=== PATIENT | female | born 1990 | race Two or more races ===

== ENCOUNTER 2022-05-16 20:38 | Emergency (ER) | payer SELFPAY ==
[~2022-05-16] VITALS: Ht 157.5 cm; Wt 87.5 kg
[2022-05-16 20:39] VITALS: BP 122/59
== END 2022-05-16 21:32 | disposition left against medical advice (07) ==
LOC: M ED 20:38
DX: Z53.21 Procedure and treatment not carried out due to patient leaving prior to being seen by health care provider (principal)

== ENCOUNTER 2023-05-28 10:04 | Day surgery (SDC) | payer OTHER ==
[~2023-05-28] VITALS: Ht 157.5 cm; Wt 67.4 kg
[~2023-05-28 10:04] MED LIST: ACET-683 PO; IBUP200C89 PO; LIDOCAINE 2% 100MG/5ML SDV (FOR ANES.) As Ordered ONE; NS 1,000 ML IV ONE; OMEP-173 PO; OMEP40CA5 PO; propofoL 200 MG/20 ML VIAL As Ordered ONE
[2023-05-28] MEDS ORDERED: fentaNYL 100 MCG/2 ML INJECTION As Ordered ONE (11:26)
[2023-05-28 12:30] VITALS: TEMP 98.4
[2023-05-28 12:47] VITALS: BP 118/62; O2SAT 98
== END 2023-05-28 12:55 | disposition home or self-care (01) ==
LOC: M OPP 10:04
PROVIDERS: ATTEND Internal Medicine Gastroenterology
DX: K51.00 Ulcerative (chronic) pancolitis without complications (principal); K52.89 Other specified noninfective gastroenteritis and colitis; K92.1 Melena; R19.7 Diarrhea, unspecified; K29.70 Gastritis, unspecified, without bleeding; R10.13 Epigastric pain; Z87.891 Personal history of nicotine dependence; Z79.1 Long term (current) use of non-steroidal anti-inflammatories (NSAID); Z79.899 Other long term (current) drug therapy
CPT/HCPCS: 43239; 45380; 87507; 88305; J3010

== ENCOUNTER → 2024-06-28 | Outpatient (CLI) | payer OTHER ==
[~2024-06-28] MED LIST changes: -LIDOCAINE 2% 100MG/5ML SDV (FOR ANES.) As Ordered ONE; -NS 1,000 ML IV ONE; -propofoL 200 MG/20 ML VIAL As Ordered ONE
== END ==
LOC: M WHC 08:52
PROVIDERS: ATTEND Nurse Practitioner Family
DX: N63.21 Unspecified lump in the left breast, upper outer quadrant (principal); R92.333 Mammographic heterogeneous density, bilateral breasts; N63.11 Unspecified lump in the right breast, upper outer quadrant
CPT/HCPCS: 76641; 76642; 77066; G0279

== ENCOUNTER → 2024-07-13 | Outpatient (CLI) | payer OTHER ==
[2024-07-13 09:54] VITALS: TEMP 98.8
[2024-07-13 10:55] VITALS: BP 108/76; O2SAT 100
== END ==
LOC: M WHCPRO 09:33
PROVIDERS: ATTEND Nurse Practitioner Family
DX: N63.20 Unspecified lump in the left breast, unspecified quadrant (principal); R59.0 Localized enlarged lymph nodes
CPT/HCPCS: 10035; 19083; 38505; 77065; 87070; 87075; 87102; 87205; 88305; A4648

== ENCOUNTER → 2024-08-28 | Outpatient (CLI) | payer OTHER ==
[2024-08-29 15:57] LABS: ANGIOTENSIN 1 CONVERTING ENZYM 32 U/L (9-67)
[2024-08-30 10:22] LABS: QuantiFERON-TB Gold Plus NEGATIVE (NEGATIVE)
== END ==
LOC: M PLALAB 11:49
PROVIDERS: ATTEND Surgery
DX: N61.22 Granulomatous mastitis, left breast (principal); N61.1 Abscess of the breast and nipple

== ENCOUNTER → 2024-09-11 | Outpatient (CLI) | payer OTHER ==
[2024-09-11 13:49] LABS: ALBUMIN 3.7 G/DL (3.2-5.2); ALKALINE PHOSPHATASE 124 U/L (35-104); ALT/SGPT 20 U/L (7.0-40); AST/SGOT 15 U/L (<34); BILIRUBIN,TOTAL 0.4 MG/DL (0.3-1.2); BLOOD UREA NITROGEN 14 MG/DL (9-23); CALCIUM LEVEL 9.1 MG/DL (8.5-10.1); CARBON DIOXIDE LEVEL 30 MMOL/L (20-31); CHLORIDE LEVEL 103 MMOL/L (98-107); GLOMERULAR FILTRATION RATE > 90.0 (>60); GLUCOSE, FASTING 93 MG/DL (60-100); POTASSIUM SERUM 4.1 MMOL/L (3.5-5.1); SODIUM LEVEL 142 MMOL/L (136-145); TOTAL PROTEIN 7.7 G/DL (5.7-8.2)
[2024-09-11 13:50] LABS: PROLACTIN 13.24 NG/ML; THYROID STIMULATING HORMONE 2.119 uIU/ML (0.55-4.78)
[2024-09-11 13:52] LABS: FREE THYROXINE INDEX 2.5 % (1.3-4.8); T UPTAKE 36.1 % (22.5-37.0)
[2024-09-11 17:15] LABS: URINE PREG TEST NEGATIVE (NEGATIVE)
== END ==
LOC: M PLALAB 12:00
PROVIDERS: ATTEND Surgery
DX: E22.1 Hyperprolactinemia (principal)